=== PATIENT | male | born 1990 | race Hispanic/Latino ===

== ENCOUNTER 2024-02-26 12:20 | Outpatient (CLI) | payer BC | END 2024-02-26 12:21 | disposition home or self-care (01) | LOC: CSHLAB 12:20 | PROVIDERS: ATTEND Surgery | DX: Z01.818 Encounter for other preprocedural examination (principal); K64.5 Perianal venous thrombosis | CPT/HCPCS: 93005; 93010 ==

== ENCOUNTER 2024-03-04 11:04 | Day surgery (SDC) | payer BC ==
[2024-02-26 12:43] VITALS: BMI 46.9
[2024-03-04] MEDS ORDERED: Lidocaine 2% PF 5 ML VIAL ONE (13:30)
[2024-03-04] MEDS ORDERED: PROPOFOL 40 ML ONE (13:31)
[2024-03-04] MEDS ORDERED: Midazolam HCl 2 mg/2 ml Vial ONE (13:52)
[2024-03-04] MEDS ORDERED: Bupivacaine/Epinephrine 0.25% 30 ML VIAL ONE (14:22)
[2024-03-04] MEDS ORDERED: Fentanyl 250 MCG/5 ML VIAL ONE (14:42)
[2024-03-04] MEDS ORDERED: CEFAZOLIN 2 GM VIAL ONE (14:43)
[2024-03-04] MEDS ORDERED: Ondansetron PF 4 MG/2 ML Vial ONE (14:43)
[2024-03-04] MEDS ORDERED: Dexamethasone 4 mg/ml Vial ONE (14:49)
[2024-03-04] MEDS ORDERED: Dexamethasone 20 MG/5 ML VIAL ONE (15:36)
[2024-03-04] MEDS ORDERED: HYDROcodone/Acetaminophen 5/325 mg Tablet ONE (16:19)
== END 2024-03-04 16:45 | disposition home or self-care (01) ==
LOC: CSHSDC 11:04
PROVIDERS: ATTEND Surgery
PROC: 06BY0ZC Excision of Hemorrhoidal Plexus, Open Approach (ICD-10-PCS; principal; 2024-03-04)
DX: K64.3 Fourth degree hemorrhoids (principal); K64.4 Residual hemorrhoidal skin tags; I10 Essential (primary) hypertension; M19.90 Unspecified osteoarthritis, unspecified site; J45.909 Unspecified asthma, uncomplicated; E66.01 Morbid (severe) obesity due to excess calories; F17.220 Nicotine dependence, chewing tobacco, uncomplicated; Z68.42 Body mass index [BMI] 45.0-49.9, adult; Z90.49 Acquired absence of other specified parts of digestive tract; Z79.899 Other long term (current) drug therapy
CPT/HCPCS: J1100; J2250; J2405; J2704; J3010